=== PATIENT | female | born 1945 | race Asian ===

== ENCOUNTER 2020-10-17 05:01 | Day surgery (SDC) | payer BC, OTHER ==
[2020-10-16 14:56] VITALS: BMI 20.5
[2020-10-17 09:51] LABS: BASO % 1.8 % (0-2.0); EOS % 0.8 % (0-4.5); HEMATOCRIT 34.6 % (32.4-45.2); HEMOGLOBIN 11.7 GM/dL (10.7-15.3); LYMPH % 13.2 % (8-40); MCH 31.3 pg (25.7-33.7); MCHC 33.9 g/dl (32.0-36.0); MEAN CELL VOLUME 92.3 fl (80-96); MEAN PLT VOLUME 9.5 fl (7.5-11.1); MONO % 7.9 % (3.8-10.2); NEUT % 76.3 % (42.8-82.8); PLATELET COUNT 46 K/MM3 (134-434); RBC 3.75 M/mm3 (3.60-5.2); RDW 16.1 % (11.6-15.6); WHITE BLOOD COUNT 15.1 K/mm3 (4.0-10.0)
[2020-10-17 09:57] LABS: INR 1.08 (0.83-1.09); PROTHROMBIN TIME (PATIENT) 13.2 SEC (9.7-13.0)
[2020-10-17 12:14] LABS: ANISOCYTOSIS 1+; MACROCYTOSIS 0; PLATELET ESTIMATE DECREASED; TEAR DROP CELLS 1+
[2020-10-17] MEDS ORDERED: MIDAZOLAM HCL 2 MG/2 ML SINGLE DOSE VIAL IVPUSH ONE (14:30)
[2020-10-17 15:14] VITALS: BP 160/54; PULSE 69; TEMP 98.2
== END 2020-10-17 14:10 | disposition home or self-care (01) ==
LOC: JRADIR 05:01
PROVIDERS: ATTEND Internal Medicine Hematology & Oncology
PROC: 07DR3ZX Extraction of Iliac Bone Marrow, Percutaneous Approach, Diagnostic (ICD-10-PCS; principal; 2020-10-17)
DX: D64.9 Anemia, unspecified (principal)
CPT/HCPCS: 20225; 36415; 85025; 85610; 88300-TC; 88305-TC; 88311-TC; 88313-TC

== ENCOUNTER 2021-02-13 16:53 | Inpatient (IN) | payer OTHER ==
[2021-02-13] MEDS ORDERED: SODIUM CHLORIDE 1,000 ML IV STA (18:09)
[2021-02-13] MEDS ORDERED: amLODIPine BESYLATE 5 MG TABLET (FP) PO ONE (19:29)
[2021-02-13] MEDS ORDERED: amLODIPine BESYLATE 5 MG TABLET (FP) ONE ×2 (20:24→20:25)
[2021-02-13] MEDS ORDERED: NIFEdipine 10 MG CAPSULE (FP) PO ONE (21:10)
[2021-02-13] MEDS ORDERED: NIFEdipine E.R. 30 MG TABLET ONE (21:11)
[2021-02-13] MEDS ORDERED: hydrALAZINE HCL 20 MG/ML VIAL IVPUSH ONE (22:37)
[2021-02-13] MEDS ORDERED: hydrALAZINE HCL 20 MG/ML VIAL ONE (22:51)
[2021-02-14] MEDS ORDERED: ACETAMINOPHEN 325 MG TABLET (FP) ONE (01:24)
[2021-02-14] MEDS: ACETAMINOPHEN 325 MG TABLET (FP) PO PRN ×3 (01:32→23:20)
[2021-02-14 05:27] VITALS: BMI 19.3
[2021-02-14 08:18] LABS: HEMATOCRIT 33.9 % (32.4-45.2); HEMOGLOBIN 11.9 GM/dL (10.7-15.3); MCH 30.9 pg (25.7-33.7); MCHC 35.1 g/dl (32.0-36.0); MEAN CELL VOLUME 88.2 fl (80-96); MEAN PLT VOLUME 8.3 fl (7.5-11.1); RBC 3.84 M/mm3 (3.60-5.2); RDW 16.2 % (11.6-15.6); WHITE BLOOD COUNT 11.8 K/mm3 (4.0-10.0)
[2021-02-14 08:23] LABS: PLATELET COUNT 28 10^3/uL (134-434)
[2021-02-14 08:46] LABS: CALCIUM 7.9 mg/dL (8.5-10.1)
[2021-02-14 08:47] LABS: ALBUMIN 3.2 g/dl (3.4-5.0); BLOOD UREA NITROGEN 9.6 mg/dL (7-18)
[2021-02-14 08:50] LABS: CREATININE 0.6 mg/dL (0.55-1.3)
[2021-02-14 08:51] LABS: BILIRUBIN,TOTAL 0.8 mg/dL (0.2-1)
[2021-02-14 08:52] LABS: TOT PROT 6.5 g/dl (6.4-8.2)
[2021-02-14 09:03] LABS: ANISOCYTOSIS 1+; MACROCYTOSIS 1+; OVALOCYTE 1+; PLATELET ESTIMATE DECREASED
[2021-02-14] MEDS: FERROUS SO4 325 MG TABLET (FP) PO SCH (09:50)
[2021-02-14] MEDS: ASCORBIC ACID 500 MG TABLET (FP) PO SCH (09:50)
[2021-02-14] MEDS: amLODIPine BESYLATE 10 MG TABLET (FP) PO SCH (09:50)
[2021-02-14] MEDS: LOSARTAN POTASSIUM 50 MG TABLET PO SCH (09:50)
[2021-02-14] MEDS: MULTIVITAMINS (DAILY MVI) TABLET (FP) PO SCH (09:50)
[2021-02-14] MEDS ORDERED: POTASSIUM CHLORIDE TABS 20 MEQ TABLET.ER (FP) PO ONE (13:20)
[2021-02-14] MEDS ORDERED: SODIUM CHLORIDE 1 GM TABLET PO ONE (13:22)
[2021-02-14] MEDS: SENNOSIDES 8.6MG TABLET (FP) PO SCH (23:18)
[2021-02-15 07:26] LABS: HEMATOCRIT 34.5 % (32.4-45.2); MCH 30.9 pg (25.7-33.7); MCHC 34.7 g/dl (32.0-36.0); MEAN CELL VOLUME 89.1 fl (80-96); MEAN PLT VOLUME 8.2 fl (7.5-11.1); RBC 3.87 M/mm3 (3.60-5.2); RDW 16.2 % (11.6-15.6); WHITE BLOOD COUNT 12.9 K/mm3 (4.0-10.0)
[2021-02-15 07:30] LABS: PLATELET COUNT 27 10^3/uL (134-434)
[2021-02-15 07:52] LABS: ALBUMIN 3.2 g/dl (3.4-5.0); BLOOD UREA NITROGEN 17.1 mg/dL (7-18); CALCIUM 7.7 mg/dL (8.5-10.1); MAGNESIUM 2.1 mg/dL (1.8-2.4)
[2021-02-15 07:54] LABS: BILIRUBIN,TOTAL 0.7 mg/dL (0.2-1); TOT PROT 6.1 g/dl (6.4-8.2)
[2021-02-15 07:55] LABS: CREATININE 0.5 mg/dL (0.55-1.3)
[2021-02-15] MEDS: LOSARTAN POTASSIUM 50 MG TABLET PO SCH (09:43)
[2021-02-15] MEDS: FERROUS SO4 325 MG TABLET (FP) PO SCH (09:43)
[2021-02-15] MEDS: ASCORBIC ACID 500 MG TABLET (FP) PO SCH (09:43)
[2021-02-15] MEDS: amLODIPine BESYLATE 10 MG TABLET (FP) PO SCH (09:43)
[2021-02-15] MEDS: MULTIVITAMINS (DAILY MVI) TABLET (FP) PO SCH (09:43)
[2021-02-15 12:47] LABS: EPI CELLS 2 /uL (0-25.1); HYALINE CASTS 0 /uL (0-3.1); PH,URINE 6.5 (5.0-8.0); URINE APPEARANCE CLEAR; URINE BACTERIA 27 /uL (0-1359); URINE BILIRUBIN NEGATIVE (NEGATIVE); URINE COLOR YELLOW; URINE GLUCOSE (UA) 2+ (NEGATIVE); URINE KETONE NEGATIVE (NEGATIVE); URINE LEUK ESTERASE NEGATIVE (NEGATIVE); URINE NITRITE NEGATIVE (NEGATIVE); URINE PROTEIN 2+ (NEGATIVE); URINE RBC 10 /uL (0-23.9); URINE UROBILINOGEN 0.2 mg/dL (0.2-1.0); URINE WBC 3 /uL (0-25.8)
[2021-02-15] MEDS ORDERED: SODIUM CHLORIDE 1 GM TABLET PO ONE (13:17)
[2021-02-15] MEDS: ACETAMINOPHEN 325 MG TABLET (FP) PO PRN (16:29)
[2021-02-15] MEDS: SENNOSIDES 8.6MG TABLET (FP) PO SCH (21:17)
[2021-02-16 08:38] LABS: CALCIUM 7.8 mg/dL (8.5-10.1)
[2021-02-16 08:39] LABS: BLOOD UREA NITROGEN 21.7 mg/dL (7-18)
[2021-02-16 08:42] LABS: CREATININE 0.5 mg/dL (0.55-1.3)
[2021-02-16] MEDS: FERROUS SO4 325 MG TABLET (FP) PO SCH (09:34)
[2021-02-16] MEDS: amLODIPine BESYLATE 10 MG TABLET (FP) PO SCH (09:34)
[2021-02-16] MEDS: MULTIVITAMINS (DAILY MVI) TABLET (FP) PO SCH (09:34)
[2021-02-16] MEDS: ASCORBIC ACID 500 MG TABLET (FP) PO SCH (09:34)
[2021-02-16] MEDS: LOSARTAN POTASSIUM 50 MG TABLET PO SCH (09:34)
[2021-02-16] MEDS ORDERED: SODIUM CHLORIDE 1 GM TABLET PO ONE (12:38)
[2021-02-16] MEDS: ACETAMINOPHEN 325 MG TABLET (FP) PO PRN ×2 (14:20→21:34)
[2021-02-16 20:50] LABS: ALBUMIN 3.4 g/dl (3.4-5.0); BLOOD UREA NITROGEN 24.3 mg/dL (7-18)
[2021-02-16 20:53] LABS: CREATININE 0.8 mg/dL (0.55-1.3)
[2021-02-16 20:55] LABS: BILIRUBIN,TOTAL 0.6 mg/dL (0.2-1); TOT PROT 6.7 g/dl (6.4-8.2)
[2021-02-16] MEDS ORDERED: PT OWN MED DRAWER 7, Y5N ONE (20:57)
[2021-02-16] MEDS: SENNOSIDES 8.6MG TABLET (FP) PO SCH (21:34)
[2021-02-17] MEDS: ACETAMINOPHEN 325 MG TABLET (FP) PO PRN (05:48)
[2021-02-17 08:17] LABS: HEMATOCRIT 37.6 % (32.4-45.2); HEMOGLOBIN 12.8 GM/dL (10.7-15.3); MCH 31.1 pg (25.7-33.7); MCHC 34.1 g/dl (32.0-36.0); MEAN CELL VOLUME 91.3 fl (80-96); MEAN PLT VOLUME 8.7 fl (7.5-11.1); RBC 4.12 M/mm3 (3.60-5.2); RDW 16.6 % (11.6-15.6); WHITE BLOOD COUNT 16.7 K/mm3 (4.0-10.0)
[2021-02-17 08:48] LABS: PLATELET COUNT 27 10^3/uL (134-434)
[2021-02-17 10:07] LABS: ANISOCYTOSIS 0; HELMET CELLS 0; HOWELL-JOLLY BODIES 0; MACROCYTOSIS 0; OVALOCYTE 0; PLATELET ESTIMATE DECREASED; ROULEAU 0; SICKELED CELLS 0; TARGET CELLS 0; TEAR DROP CELLS 0; TOXIC GRANULATION 0
[2021-02-17] MEDS: FERROUS SO4 325 MG TABLET (FP) PO SCH (10:07)
[2021-02-17] MEDS: amLODIPine BESYLATE 10 MG TABLET (FP) PO SCH (10:07)
[2021-02-17] MEDS: ASCORBIC ACID 500 MG TABLET (FP) PO SCH (10:07)
[2021-02-17] MEDS: LOSARTAN POTASSIUM 50 MG TABLET PO SCH (10:07)
[2021-02-17] MEDS: MULTIVITAMINS (DAILY MVI) TABLET (FP) PO SCH (10:07)
[2021-02-17] MEDS ORDERED: SODIUM CHLORIDE 1,000 ML IV SCH (12:30)
[2021-02-17] MEDS: SODIUM CHLORIDE 1 GM TABLET PO SCH (13:15)
[2021-02-17] MEDS ORDERED: METOPROLOL TARTRATE 5 MG/5 ML VIAL IVPUSH PRN (16:49)
[2021-02-17] MEDS ORDERED: METOPROLOL TARTRATE 5 MG/5 ML VIAL ONE (16:50)
[2021-02-17] MEDS ORDERED: METOPROLOL TARTRATE 25 MG TABLET (FP) PO ONE (17:11)
[2021-02-17] MEDS: METOPROLOL TARTRATE 25 MG TABLET (FP) PO SCH (21:59)
[2021-02-17] MEDS: SENNOSIDES 8.6MG TABLET (FP) PO SCH (21:59)
[2021-02-18] MEDS: ACETAMINOPHEN 325 MG TABLET (FP) PO PRN ×2 (00:59→20:07)
[2021-02-18] MEDS: METOPROLOL TARTRATE 25 MG TABLET (FP) PO SCH ×3 (05:36→21:18)
[2021-02-18 08:12] LABS: CALCIUM 8.1 mg/dL (8.5-10.1)
[2021-02-18 08:13] LABS: BLOOD UREA NITROGEN 14.6 mg/dL (7-18)
[2021-02-18 08:16] LABS: CREATININE 0.4 mg/dL (0.55-1.3)
[2021-02-18 08:17] LABS: BILIRUBIN,TOTAL 0.7 mg/dL (0.2-1); TOT PROT 5.9 g/dl (6.4-8.2)
[2021-02-18] MEDS: LOSARTAN POTASSIUM 50 MG TABLET PO SCH (14:00)
[2021-02-18] MEDS: MULTIVITAMINS (DAILY MVI) TABLET (FP) PO SCH (14:00)
[2021-02-18] MEDS: amLODIPine BESYLATE 10 MG TABLET (FP) PO SCH (14:01)
[2021-02-18] MEDS: SODIUM CHLORIDE 1 GM TABLET PO SCH (14:01)
[2021-02-18] MEDS: ASCORBIC ACID 500 MG TABLET (FP) PO SCH (14:01)
[2021-02-18] MEDS: SENNOSIDES 8.6MG TABLET (FP) PO SCH (21:18)
[2021-02-19] MEDS: METOPROLOL TARTRATE 25 MG TABLET (FP) PO SCH (05:08)
[2021-02-19] MEDS: SODIUM CHLORIDE 1 GM TABLET PO SCH (10:56)
[2021-02-19] MEDS: LOSARTAN POTASSIUM 50 MG TABLET PO SCH (10:56)
[2021-02-19] MEDS: MULTIVITAMINS (DAILY MVI) TABLET (FP) PO SCH (10:56)
[2021-02-19] MEDS: amLODIPine BESYLATE 10 MG TABLET (FP) PO SCH (10:56)
[2021-02-19] MEDS: metoPROLOL SUCCINATE 25 MG TAB.SR.24H (FP) PO SCH (10:56)
[2021-02-19] MEDS: ASCORBIC ACID 500 MG TABLET (FP) PO SCH (10:56)
[2021-02-19 11:20] LABS: HEMATOCRIT 38.2 % (32.4-45.2); HEMOGLOBIN 13.1 GM/dL (10.7-15.3); MCH 31.5 pg (25.7-33.7); MCHC 34.2 g/dl (32.0-36.0); MEAN CELL VOLUME 92.1 fl (80-96); MEAN PLT VOLUME 8.7 fl (7.5-11.1); RBC 4.15 M/mm3 (3.60-5.2)
[2021-02-19 11:32] LABS: PLATELET COUNT 23 10^3/uL (134-434)
[2021-02-19 11:33] LABS: BLOOD UREA NITROGEN 14.7 mg/dL (7-18); CALCIUM 8.5 mg/dL (8.5-10.1)
[2021-02-19 11:34] LABS: ALBUMIN 3.3 g/dl (3.4-5.0)
[2021-02-19 11:36] LABS: CREATININE 0.6 mg/dL (0.55-1.3)
[2021-02-19 11:38] LABS: BILIRUBIN,TOTAL 0.9 mg/dL (0.2-1); TOT PROT 6.6 g/dl (6.4-8.2)
[2021-02-19] MEDS: SENNOSIDES 8.6MG TABLET (FP) PO SCH (21:41)
[2021-02-19] MEDS: ACETAMINOPHEN 325 MG TABLET (FP) PO PRN (21:42)
[2021-02-20 07:22] LABS: HEMATOCRIT 35.1 % (32.4-45.2); HEMOGLOBIN 12.2 GM/dL (10.7-15.3); MCH 31.6 pg (25.7-33.7); MCHC 34.7 g/dl (32.0-36.0); MEAN PLT VOLUME 8.3 fl (7.5-11.1); RBC 3.86 M/mm3 (3.60-5.2); RDW 16.3 % (11.6-15.6)
[2021-02-20 07:37] LABS: PLATELET COUNT 20 10^3/uL (134-434)
[2021-02-20] MEDS: amLODIPine BESYLATE 10 MG TABLET (FP) PO SCH (10:03)
[2021-02-20] MEDS: LOSARTAN POTASSIUM 50 MG TABLET PO SCH (10:03)
[2021-02-20] MEDS: MULTIVITAMINS (DAILY MVI) TABLET (FP) PO SCH (10:03)
[2021-02-20] MEDS: metoPROLOL SUCCINATE 25 MG TAB.SR.24H (FP) PO SCH (10:03)
[2021-02-20] MEDS: SODIUM CHLORIDE 1 GM TABLET PO SCH (10:03)
[2021-02-20] MEDS: ASCORBIC ACID 500 MG TABLET (FP) PO SCH (10:03)
[2021-02-20] MEDS: ACETAMINOPHEN 325 MG TABLET (FP) PO PRN ×2 (10:04→21:49)
[2021-02-20] MEDS: SENNOSIDES 8.6MG TABLET (FP) PO SCH (21:45)
[2021-02-21 06:40] VITALS: TEMP 98.2
[2021-02-21 07:58] LABS: HEMATOCRIT 35.4 % (32.4-45.2); HEMOGLOBIN 12.2 GM/dL (10.7-15.3); MCH 30.9 pg (25.7-33.7); MCHC 34.3 g/dl (32.0-36.0); MEAN CELL VOLUME 90.1 fl (80-96); MEAN PLT VOLUME 8.5 fl (7.5-11.1); RBC 3.93 M/mm3 (3.60-5.2); RDW 15.8 % (11.6-15.6); WHITE BLOOD COUNT 14.2 K/mm3 (4.0-10.0)
[2021-02-21 08:16] LABS: ALBUMIN 3.4 g/dl (3.4-5.0); BLOOD UREA NITROGEN 19.8 mg/dL (7-18); CALCIUM 8.7 mg/dL (8.5-10.1)
[2021-02-21 08:18] LABS: CREATININE 0.6 mg/dL (0.55-1.3)
[2021-02-21 08:29] LABS: PLATELET COUNT 20 10^3/uL (134-434)
[2021-02-21 09:33] VITALS: BP 140/67; PULSE 105
[2021-02-21 09:34] LABS: BILIRUBIN,TOTAL 0.7 mg/dL (0.2-1)
[2021-02-21] MEDS: LOSARTAN POTASSIUM 50 MG TABLET PO SCH (10:25)
[2021-02-21] MEDS: amLODIPine BESYLATE 10 MG TABLET (FP) PO SCH (10:25)
[2021-02-21] MEDS: ASCORBIC ACID 500 MG TABLET (FP) PO SCH (10:25)
[2021-02-21] MEDS: metoPROLOL SUCCINATE 25 MG TAB.SR.24H (FP) PO SCH (10:25)
[2021-02-21] MEDS: MULTIVITAMINS (DAILY MVI) TABLET (FP) PO SCH (10:25)
[2021-02-21] MEDS: ACETAMINOPHEN 325 MG TABLET (FP) PO PRN (10:27)
== END 2021-02-21 14:00 | disposition home health service (06) | DRG 641 ==
LOC: JER 16:53 → JERBED 22:55 → J4W 02-14 04:04
PROVIDERS: ADMIT Internal Medicine; ATTEND Internal Medicine
DX: E87.1 Hypo-osmolality and hyponatremia (principal); D75.81 Myelofibrosis; I16.0 Hypertensive urgency; R42 Dizziness and giddiness; E11.9 Type 2 diabetes mellitus without complications; E03.9 Hypothyroidism, unspecified; I27.20 Pulmonary hypertension, unspecified; F17.200 Nicotine dependence, unspecified, uncomplicated; I48.91 Unspecified atrial fibrillation; D69.6 Thrombocytopenia, unspecified; E87.6 Hypokalemia; D64.9 Anemia, unspecified
CPT/HCPCS: 36415; 70450-TC; 71045-TC-FY; 71046-TC-FY; 80048; 80053; 81003; 82436; 82533; 82728; 83036; 83540; 83550; 83615; 83735; 83930; 83935; 84133; 84300; 84439; 84443; 85025; 85027; 86850; 86900; 86901; 87040; 87086; 88300-TC; 93005; 93010; 93306-TC; 99285-25; C9803; U0003; U0005

== ENCOUNTER 2021-03-18 15:55 | Inpatient (IN) | payer OTHER ==
[2021-03-18 23:37] LABS: HEMATOCRIT 31.3 % (32.4-45.2); HEMOGLOBIN 10.1 GM/dL (10.7-15.3); MCH 30.5 pg (25.7-33.7); MCHC 32.2 g/dl (32.0-36.0); MEAN CELL VOLUME 94.7 fl (80-96); MEAN PLT VOLUME 8.6 fl (7.5-11.1); PLATELET COUNT 73 10^3/uL (134-434); RDW 17.2 % (11.6-15.6); WHITE BLOOD COUNT 19.2 K/mm3 (4.0-10.0)
[2021-03-18 23:47] LABS: CHLORIDE 107 mmol/L (98-107); SODIUM 140 mmol/L (136-145)
[2021-03-18 23:50] LABS: ANION GAP 7 MMOL/L (8-16); BLOOD UREA NITROGEN 9.5 mg/dL (7-18); CALCIUM 8.7 mg/dL (8.5-10.1); CO2 26 mmol/L (21-32)
[2021-03-18 23:51] LABS: ALBUMIN 3.4 g/dl (3.4-5.0); GLUCOSE,RANDOM 102 mg/dL (74-106)
[2021-03-18 23:54] LABS: CREATININE 0.5 mg/dL (0.55-1.3); SGOT/AST 54 U/L (15-37); SGPT/ALT 54 U/L (13-61)
[2021-03-18 23:55] LABS: BILIRUBIN,TOTAL 1.1 mg/dL (0.2-1); TOT PROT 6.8 g/dl (6.4-8.2)
[2021-03-18 23:59] LABS: N-TERMINAL BNP 2430.2 pg/ml (5-450)
[2021-03-19 00:28] LABS: ALK PHOS 136 U/L (45-117)
[2021-03-19 01:08] LABS: ANISOCYTOSIS 1+; MACROCYTOSIS 0; PLATELET ESTIMATE DECREASED
[2021-03-19] MEDS ORDERED: SODIUM CHLORIDE 0.9% 500 ML INFUS.BAG IV ONE (01:44)
[2021-03-19 05:59] LABS: CHLORIDE 108 mmol/L (98-107); SODIUM 141 mmol/L (136-145)
[2021-03-19 06:01] LABS: ALBUMIN 3.1 g/dl (3.4-5.0); ANION GAP 5 MMOL/L (8-16); BLOOD UREA NITROGEN 11.2 mg/dL (7-18); CALCIUM 8.3 mg/dL (8.5-10.1); CO2 28 mmol/L (21-32); GLUCOSE,RANDOM 157 mg/dL (74-106)
[2021-03-19 06:04] LABS: CREATININE 0.7 mg/dL (0.55-1.3); SGOT/AST 42 U/L (15-37); SGPT/ALT 54 U/L (13-61)
[2021-03-19 06:05] LABS: INR 1.17 (0.83-1.09); PROTHROMBIN TIME (PATIENT) 14.4 SEC (9.7-13.0)
[2021-03-19 06:06] LABS: BILIRUBIN,TOTAL 0.9 mg/dL (0.2-1); TOT PROT 6.2 g/dl (6.4-8.2)
[2021-03-19 06:07] LABS: ACTIVATED PTT 29.7 SECONDS (25.2-36.5); ALK PHOS 142 U/L (45-117)
[2021-03-19] MEDS: INSULIN SLIDING SCALE (NOVOLOG) 1 VIAL SQ SCH ×4 (08:29→21:53)
[2021-03-19] MEDS ORDERED: METOPROLOL TARTRATE 50 MG TABLET (FP) ONE (09:31)
[2021-03-19] MEDS ORDERED: LOSARTAN POTASSIUM 50 MG TABLET ONE (09:31)
[2021-03-19] MEDS ORDERED: ASCORBIC ACID 500 MG TABLET (FP) ONE (09:31)
[2021-03-19] MEDS ORDERED: FERROUS SO4 325 MG TABLET (FP) ONE ×2 (09:32→18:17)
[2021-03-19] MEDS ORDERED: FUROSEMIDE 40 MG/4 ML INJECTABLE VIAL ONE (09:33)
[2021-03-19] MEDS: FERROUS SO4 325 MG TABLET (FP) PO SCH ×2 (09:56→18:17)
[2021-03-19] MEDS: FUROSEMIDE 40 MG/4 ML INJECTABLE VIAL IVPUSH SCH (11:56)
[2021-03-19] MEDS: LOSARTAN POTASSIUM 50 MG TABLET PO SCH (11:56)
[2021-03-19] MEDS: METOPROLOL TARTRATE 50 MG TABLET (FP) PO SCH ×2 (11:56→21:56)
[2021-03-19] MEDS: CALCIUM 500MG/VIT-D 200 UNITS COMBO TABLET (FP) PO SCH (11:57)
[2021-03-19] MEDS: ASCORBIC ACID 500 MG TABLET (FP) PO SCH (11:57)
[2021-03-19 12:13] LABS: EPI CELLS 1 /uL (0-25.1); HYALINE CASTS 0 /uL (0-3.1); PH,URINE 5.5 (5.0-8.0); URINE APPEARANCE CLEAR; URINE BACTERIA 7 /uL (0-1359); URINE BILIRUBIN NEGATIVE (NEGATIVE); URINE COLOR YELLOW; URINE GLUCOSE (UA) NEGATIVE (NEGATIVE); URINE KETONE NEGATIVE (NEGATIVE); URINE LEUK ESTERASE NEGATIVE (NEGATIVE); URINE NITRITE NEGATIVE (NEGATIVE); URINE PROTEIN 1+ (NEGATIVE); URINE RBC 5 /uL (0-23.9); URINE WBC 3 /uL (0-25.8)
[2021-03-19] MEDS ORDERED: ACETAMINOPHEN 325 MG TABLET (FP) ONE (15:20)
[2021-03-19] MEDS: ACETAMINOPHEN 325 MG TABLET (FP) PO PRN (15:27)
[2021-03-20] MEDS: INSULIN SLIDING SCALE (NOVOLOG) 1 VIAL SQ SCH ×4 (06:44→22:33)
[2021-03-20 07:32] LABS: HEMATOCRIT 29.9 % (32.4-45.2); HEMOGLOBIN 9.9 GM/dL (10.7-15.3); MCH 30.8 pg (25.7-33.7); MEAN CELL VOLUME 93.4 fl (80-96); MEAN PLT VOLUME 8.2 fl (7.5-11.1); PLATELET COUNT 59 10^3/uL (134-434)
[2021-03-20 07:53] LABS: ALBUMIN 3.2 g/dl (3.4-5.0)
[2021-03-20 07:54] LABS: CALCIUM 8.4 mg/dL (8.5-10.1)
[2021-03-20 07:56] LABS: CREATININE 0.6 mg/dL (0.55-1.3)
[2021-03-20 07:58] LABS: BILIRUBIN,TOTAL 1.3 mg/dL (0.2-1); TOT PROT 6.4 g/dl (6.4-8.2)
[2021-03-20 08:55] LABS: ANISOCYTOSIS 1+; MACROCYTOSIS 1+; OVALOCYTE 1+; PLATELET ESTIMATE DECREASED
[2021-03-20 08:57] LABS: CORRECTED WBC 19.56 K/mm3; WHITE BLOOD COUNT 22.1 K/mm3 (4.0-10.0)
[2021-03-20] MEDS: FERROUS SO4 325 MG TABLET (FP) PO SCH ×2 (09:15→16:51)
[2021-03-20] MEDS: FUROSEMIDE 40 MG/4 ML INJECTABLE VIAL IVPUSH SCH (09:15)
[2021-03-20] MEDS: CALCIUM 500MG/VIT-D 200 UNITS COMBO TABLET (FP) PO SCH (09:16)
[2021-03-20] MEDS: LOSARTAN POTASSIUM 50 MG TABLET PO SCH (09:16)
[2021-03-20] MEDS: ASCORBIC ACID 500 MG TABLET (FP) PO SCH (09:16)
[2021-03-20] MEDS: METOPROLOL TARTRATE 50 MG TABLET (FP) PO SCH ×2 (09:16→22:33)
[2021-03-20] MEDS: ACETAMINOPHEN 325 MG TABLET (FP) PO PRN ×2 (16:09→22:33)
[2021-03-21] MEDS: INSULIN SLIDING SCALE (NOVOLOG) 1 VIAL SQ SCH ×4 (06:16→21:47)
[2021-03-21 07:57] LABS: HEMATOCRIT 29.6 % (32.4-45.2); HEMOGLOBIN 9.9 GM/dL (10.7-15.3); MCH 31.2 pg (25.7-33.7); MCHC 33.4 g/dl (32.0-36.0); MEAN CELL VOLUME 93.4 fl (80-96); MEAN PLT VOLUME 8.4 fl (7.5-11.1); PLATELET COUNT 53 10^3/uL (134-434); RBC 3.18 M/mm3 (3.60-5.2); RDW 16.8 % (11.6-15.6); WHITE BLOOD COUNT 16.8 K/mm3 (4.0-10.0)
[2021-03-21 08:13] LABS: BLOOD UREA NITROGEN 16.7 mg/dL (7-18); CALCIUM 8.6 mg/dL (8.5-10.1)
[2021-03-21 08:17] LABS: CREATININE 0.6 mg/dL (0.55-1.3)
[2021-03-21 08:19] LABS: TOT PROT 6.1 g/dl (6.4-8.2)
[2021-03-21] MEDS: FERROUS SO4 325 MG TABLET (FP) PO SCH ×2 (08:23→17:16)
[2021-03-21] MEDS ORDERED: POTASSIUM CHLORIDE ORAL LIQUID 20 MEQ/15 ML PO ONE (08:45)
[2021-03-21] MEDS: LOSARTAN POTASSIUM 50 MG TABLET PO SCH (10:42)
[2021-03-21] MEDS: FUROSEMIDE 40 MG/4 ML INJECTABLE VIAL IVPUSH SCH (10:43)
[2021-03-21] MEDS: ASCORBIC ACID 500 MG TABLET (FP) PO SCH (10:43)
[2021-03-21] MEDS: CALCIUM 500MG/VIT-D 200 UNITS COMBO TABLET (FP) PO SCH (10:43)
[2021-03-21] MEDS: METOPROLOL TARTRATE 50 MG TABLET (FP) PO SCH ×2 (10:43→21:46)
[2021-03-22] MEDS: INSULIN SLIDING SCALE (NOVOLOG) 1 VIAL SQ SCH ×4 (06:30→22:36)
[2021-03-22] MEDS: ASCORBIC ACID 500 MG TABLET (FP) PO SCH (11:00)
[2021-03-22] MEDS: METOPROLOL TARTRATE 50 MG TABLET (FP) PO SCH ×2 (11:00→22:36)
[2021-03-22] MEDS: CALCIUM 500MG/VIT-D 200 UNITS COMBO TABLET (FP) PO SCH (11:00)
[2021-03-22] MEDS: FERROUS SO4 325 MG TABLET (FP) PO SCH ×2 (11:00→17:56)
[2021-03-22] MEDS: LOSARTAN POTASSIUM 50 MG TABLET PO SCH (11:00)
[2021-03-22] MEDS: FUROSEMIDE 40 MG/4 ML INJECTABLE VIAL IVPUSH SCH (11:00)
[2021-03-23] MEDS: INSULIN SLIDING SCALE (NOVOLOG) 1 VIAL SQ SCH ×4 (06:27→21:54)
[2021-03-23 08:15] LABS: HEMOGLOBIN 11.1 GM/dL (10.7-15.3); MCH 30.8 pg (25.7-33.7); MCHC 32.7 g/dl (32.0-36.0); MEAN PLT VOLUME 8.7 fl (7.5-11.1); PLATELET COUNT 70 10^3/uL (134-434); RBC 3.62 M/mm3 (3.60-5.2); RDW 16.7 % (11.6-15.6); WHITE BLOOD COUNT 27.4 K/mm3 (4.0-10.0)
[2021-03-23 08:28] LABS: ALBUMIN 3.5 g/dl (3.4-5.0)
[2021-03-23 08:29] LABS: BLOOD UREA NITROGEN 15.6 mg/dL (7-18); CALCIUM 8.8 mg/dL (8.5-10.1)
[2021-03-23 08:32] LABS: BILIRUBIN,TOTAL 1.1 mg/dL (0.2-1); CREATININE 0.7 mg/dL (0.55-1.3)
[2021-03-23] MEDS: METOPROLOL TARTRATE 50 MG TABLET (FP) PO SCH ×2 (09:50→21:53)
[2021-03-23] MEDS: FERROUS SO4 325 MG TABLET (FP) PO SCH ×2 (09:50→17:26)
[2021-03-23] MEDS: ASCORBIC ACID 500 MG TABLET (FP) PO SCH (09:50)
[2021-03-23] MEDS: CALCIUM 500MG/VIT-D 200 UNITS COMBO TABLET (FP) PO SCH (09:50)
[2021-03-23] MEDS: LOSARTAN POTASSIUM 50 MG TABLET PO SCH (09:50)
[2021-03-23] MEDS: FUROSEMIDE 40 MG/4 ML INJECTABLE VIAL IVPUSH SCH (09:50)
[2021-03-23] MEDS: ACETAMINOPHEN 325 MG TABLET (FP) PO PRN (21:53)
[2021-03-24] MEDS: INSULIN SLIDING SCALE (NOVOLOG) 1 VIAL SQ SCH ×4 (06:35→21:43)
[2021-03-24] MEDS: FERROUS SO4 325 MG TABLET (FP) PO SCH ×2 (08:14→17:06)
[2021-03-24] MEDS: CALCIUM 500MG/VIT-D 200 UNITS COMBO TABLET (FP) PO SCH (10:22)
[2021-03-24] MEDS: METOPROLOL TARTRATE 50 MG TABLET (FP) PO SCH ×3 (10:22→21:43)
[2021-03-24] MEDS: FUROSEMIDE 20 MG TABLET (FP) PO SCH (10:22)
[2021-03-24] MEDS: LOSARTAN POTASSIUM 50 MG TABLET PO SCH (10:22)
[2021-03-24] MEDS: ASCORBIC ACID 500 MG TABLET (FP) PO SCH (10:22)
[2021-03-24 11:15] LABS: HEMATOCRIT 30.9 % (32.4-45.2); MCH 30.5 pg (25.7-33.7); MCHC 32.5 g/dl (32.0-36.0); MEAN CELL VOLUME 93.9 fl (80-96); MEAN PLT VOLUME 8.7 fl (7.5-11.1); PLATELET COUNT 52 10^3/uL (134-434); RBC 3.29 M/mm3 (3.60-5.2)
[2021-03-24 11:20] LABS: WHITE BLOOD COUNT 19.7 K/mm3 (4.0-10.0)
[2021-03-24 11:35] LABS: ALBUMIN 3.1 g/dl (3.4-5.0); BLOOD UREA NITROGEN 19.1 mg/dL (7-18); CALCIUM 8.6 mg/dL (8.5-10.1)
[2021-03-24 11:38] LABS: CREATININE 0.7 mg/dL (0.55-1.3)
[2021-03-24 11:40] LABS: BILIRUBIN,TOTAL 0.8 mg/dL (0.2-1); TOT PROT 6.4 g/dl (6.4-8.2)
[2021-03-24 12:33] LABS: ANISOCYTOSIS 0; MACROCYTOSIS 0; PLATELET ESTIMATE DECREASED
[2021-03-24] MEDS: ACETAMINOPHEN 325 MG TABLET (FP) PO PRN (15:41)
[2021-03-25 05:55] LABS: PH,URINE 6.5 (5.0-8.0); URINE APPEARANCE Error; URINE BILIRUBIN NEGATIVE (NEGATIVE); URINE COLOR YELLOW; URINE GLUCOSE (UA) NEGATIVE (NEGATIVE); URINE KETONE NEGATIVE (NEGATIVE); URINE LEUK ESTERASE NEGATIVE (NEGATIVE); URINE NITRITE NEGATIVE (NEGATIVE); URINE PROTEIN NEGATIVE (NEGATIVE); URINE UROBILINOGEN 0.2 mg/dL (0.2-1.0)
[2021-03-25] MEDS: METOPROLOL TARTRATE 50 MG TABLET (FP) PO SCH ×3 (06:16→21:44)
[2021-03-25] MEDS: INSULIN SLIDING SCALE (NOVOLOG) 1 VIAL SQ SCH ×4 (06:16→21:44)
[2021-03-25] MEDS: FERROUS SO4 325 MG TABLET (FP) PO SCH ×2 (10:33→18:00)
[2021-03-25] MEDS: CALCIUM 500MG/VIT-D 200 UNITS COMBO TABLET (FP) PO SCH (10:33)
[2021-03-25] MEDS: FUROSEMIDE 20 MG TABLET (FP) PO SCH (10:33)
[2021-03-25] MEDS: LOSARTAN POTASSIUM 50 MG TABLET PO SCH (10:33)
[2021-03-25] MEDS: ASCORBIC ACID 500 MG TABLET (FP) PO SCH (10:33)
[2021-03-25] MEDS ORDERED: INSULIN (NOVOLOG) ASPART 100 UNITS/ML 10ML VIAL ONE (11:27)
[2021-03-25] MEDS: ACETAMINOPHEN 325 MG TABLET (FP) PO PRN (20:18)
[2021-03-26] MEDS: METOPROLOL TARTRATE 50 MG TABLET (FP) PO SCH ×3 (06:42→21:47)
[2021-03-26] MEDS: INSULIN SLIDING SCALE (NOVOLOG) 1 VIAL SQ SCH ×4 (06:42→21:47)
[2021-03-26] MEDS: GLIMEPIRIDE 1 MG TABLET PO SCH (06:42)
[2021-03-26 08:15] LABS: HEMATOCRIT 28.4 % (32.4-45.2); HEMOGLOBIN 9.4 GM/dL (10.7-15.3); MCH 30.8 pg (25.7-33.7); MCHC 33.2 g/dl (32.0-36.0); MEAN CELL VOLUME 92.6 fl (80-96); MEAN PLT VOLUME 8.6 fl (7.5-11.1); PLATELET COUNT 40 10^3/uL (134-434); RBC 3.07 M/mm3 (3.60-5.2); RDW 16.8 % (11.6-15.6); WHITE BLOOD COUNT 16.3 K/mm3 (4.0-10.0)
[2021-03-26 08:48] LABS: CALCIUM 8.3 mg/dL (8.5-10.1)
[2021-03-26 08:49] LABS: ALBUMIN 2.9 g/dl (3.4-5.0); BLOOD UREA NITROGEN 19.7 mg/dL (7-18)
[2021-03-26 08:52] LABS: CREATININE 0.6 mg/dL (0.55-1.3)
[2021-03-26 08:53] LABS: BILIRUBIN,TOTAL 0.7 mg/dL (0.2-1); TOT PROT 5.9 g/dl (6.4-8.2)
[2021-03-26] MEDS: FUROSEMIDE 20 MG TABLET (FP) PO SCH (10:32)
[2021-03-26] MEDS: CALCIUM 500MG/VIT-D 200 UNITS COMBO TABLET (FP) PO SCH (10:32)
[2021-03-26] MEDS: ASCORBIC ACID 500 MG TABLET (FP) PO SCH (10:32)
[2021-03-26] MEDS: LOSARTAN POTASSIUM 50 MG TABLET PO SCH (10:32)
[2021-03-26] MEDS: FERROUS SO4 325 MG TABLET (FP) PO SCH ×2 (10:32→17:17)
[2021-03-26 16:33] VITALS: BMI 19.2
[2021-03-26] MEDS ORDERED: INSULIN (NOVOLOG) ASPART 100 UNITS/ML 10ML VIAL ONE (21:18)
[2021-03-26] MEDS: ACETAMINOPHEN 325 MG TABLET (FP) PO PRN (21:47)
[2021-03-26] MEDS ORDERED: MAG HYDROX/AL HYDROX/SIMETH 30 ML UNIT-DOSE CUP PO ONE (22:17)
[2021-03-27] MEDS ORDERED: PT OWN MED DRAWER 7, Y5N ONE (05:46)
[2021-03-27] MEDS: METOPROLOL TARTRATE 50 MG TABLET (FP) PO SCH ×3 (06:08→21:33)
[2021-03-27] MEDS: GLIMEPIRIDE 1 MG TABLET PO SCH (06:08)
[2021-03-27] MEDS: INSULIN SLIDING SCALE (NOVOLOG) 1 VIAL SQ SCH ×4 (06:09→21:34)
[2021-03-27] MEDS ORDERED: INSULIN (NOVOLOG) ASPART 100 UNITS/ML 10ML VIAL ONE (06:17)
[2021-03-27 08:24] LABS: HEMATOCRIT 30.9 % (32.4-45.2); HEMOGLOBIN 10.1 GM/dL (10.7-15.3); MCH 30.9 pg (25.7-33.7); MCHC 32.6 g/dl (32.0-36.0); MEAN CELL VOLUME 94.7 fl (80-96); MEAN PLT VOLUME 9.4 fl (7.5-11.1); PLATELET COUNT 44 10^3/uL (134-434); RBC 3.26 M/mm3 (3.60-5.2); RDW 16.6 % (11.6-15.6); WHITE BLOOD COUNT 16.4 K/mm3 (4.0-10.0)
[2021-03-27 08:55] LABS: CALCIUM 8.7 mg/dL (8.5-10.1)
[2021-03-27 08:57] LABS: BILIRUBIN,TOTAL 0.8 mg/dL (0.2-1); BLOOD UREA NITROGEN 20.8 mg/dL (7-18); TOT PROT 6.2 g/dl (6.4-8.2)
[2021-03-27 08:59] LABS: CREATININE 0.6 mg/dL (0.55-1.3)
[2021-03-27] MEDS: CALCIUM 500MG/VIT-D 200 UNITS COMBO TABLET (FP) PO SCH (10:30)
[2021-03-27] MEDS: ASCORBIC ACID 500 MG TABLET (FP) PO SCH (10:31)
[2021-03-27] MEDS: LOSARTAN POTASSIUM 50 MG TABLET PO SCH (10:31)
[2021-03-27] MEDS: FERROUS SO4 325 MG TABLET (FP) PO SCH ×2 (10:31→17:12)
[2021-03-27] MEDS: FUROSEMIDE 20 MG TABLET (FP) PO SCH (10:31)
[2021-03-27] MEDS: ACETAMINOPHEN 325 MG TABLET (FP) PO PRN (21:33)
[2021-03-28] MEDS ORDERED: PT OWN MED DRAWER 7, Y5N ONE (04:54)
[2021-03-28] MEDS: GLIMEPIRIDE 1 MG TABLET PO SCH (06:04)
[2021-03-28] MEDS: INSULIN SLIDING SCALE (NOVOLOG) 1 VIAL SQ SCH ×4 (06:05→22:38)
[2021-03-28] MEDS ORDERED: INSULIN (NOVOLOG) ASPART 100 UNITS/ML 10ML VIAL ONE (06:19)
[2021-03-28] MEDS: LOSARTAN POTASSIUM 50 MG TABLET PO SCH (10:53)
[2021-03-28] MEDS: FERROUS SO4 325 MG TABLET (FP) PO SCH ×2 (10:54→17:37)
[2021-03-28] MEDS: metoPROLOL SUCCINATE 25 MG TAB.SR.24H (FP) PO SCH ×2 (10:54→22:39)
[2021-03-28] MEDS: FUROSEMIDE 20 MG TABLET (FP) PO SCH (10:55)
[2021-03-28] MEDS: ASCORBIC ACID 500 MG TABLET (FP) PO SCH (10:55)
[2021-03-28] MEDS: CALCIUM 500MG/VIT-D 200 UNITS COMBO TABLET (FP) PO SCH (10:56)
[2021-03-28] MEDS: ACETAMINOPHEN 325 MG TABLET (FP) PO PRN (22:43)
[2021-03-29] MEDS ORDERED: PT OWN MED DRAWER 7, Y5N ONE (06:21)
[2021-03-29] MEDS: GLIMEPIRIDE 1 MG TABLET PO SCH (06:57)
[2021-03-29] MEDS: INSULIN SLIDING SCALE (NOVOLOG) 1 VIAL SQ SCH ×2 (06:57→12:17)
[2021-03-29] MEDS: metoPROLOL SUCCINATE 25 MG TAB.SR.24H (FP) PO SCH (10:23)
[2021-03-29] MEDS: FUROSEMIDE 20 MG TABLET (FP) PO SCH (10:24)
[2021-03-29] MEDS: LOSARTAN POTASSIUM 50 MG TABLET PO SCH (10:24)
[2021-03-29] MEDS: CALCIUM 500MG/VIT-D 200 UNITS COMBO TABLET (FP) PO SCH (10:24)
[2021-03-29] MEDS: ASCORBIC ACID 500 MG TABLET (FP) PO SCH (10:24)
[2021-03-29] MEDS: FERROUS SO4 325 MG TABLET (FP) PO SCH (10:24)
[2021-03-29 10:38] VITALS: BP 117/68; PULSE 98; TEMP 97.7
== END 2021-03-29 15:15 | disposition home health service (06) | DRG 291 ==
LOC: JER 15:55 → JERBED 03-19 03:47 → J4W 03-19 21:49
PROVIDERS: ADMIT Internal Medicine; ATTEND Internal Medicine
DX: I11.0 Hypertensive heart disease with heart failure (principal); I50.33 Acute on chronic diastolic (congestive) heart failure; I48.19 Other persistent atrial fibrillation; R64 Cachexia; Z68.1 Body mass index [BMI] 19.9 or less, adult; I27.20 Pulmonary hypertension, unspecified; I48.91 Unspecified atrial fibrillation; E11.9 Type 2 diabetes mellitus without complications; R91.8 Other nonspecific abnormal finding of lung field; R60.0 Localized edema; M79.606 Pain in leg, unspecified; R06.02 Shortness of breath; D75.9 Disease of blood and blood-forming organs, unspecified; D69.6 Thrombocytopenia, unspecified; I16.0 Hypertensive urgency; D64.9 Anemia, unspecified; I25.10 Atherosclerotic heart disease of native coronary artery without angina pectoris; D72.829 Elevated white blood cell count, unspecified
CPT/HCPCS: 36415; 71045-TC-FY; 71046-TC-FY; 71250-TC; 71275-TC; 80048; 80053; 81003; 82550; 82962; 83735; 83880; 84484; 85025; 85027; 85610; 85730; 86480; 86704; 86706; 87040; 87086; 87340; 87350; 87517; 93005; 93010; 94010; 94761; 97116-GP; 97162-GP; 99285-25; C9803; U0003; U0005

== ENCOUNTER 2021-06-15 15:56 | Inpatient (IN) | payer OTHER ==
[2021-06-15 17:41] LABS: HEMATOCRIT 42.2 % (32.4-45.2); MCH 29.4 pg (25.7-33.7); MCHC 33.2 g/dl (32.0-36.0); MEAN CELL VOLUME 88.6 fl (80-96); MEAN PLT VOLUME 8.7 fl (7.5-11.1); PLATELET COUNT 84 10^3/uL (134-434); RBC 4.76 M/mm3 (3.60-5.2); RDW 16.6 % (11.6-15.6); WHITE BLOOD COUNT 26.6 K/mm3 (4.0-10.0)
[2021-06-15 17:50] LABS: INR 1.41 (0.83-1.09); PROTHROMBIN TIME (PATIENT) 15.8 SEC (9.7-13.0)
[2021-06-15 17:59] LABS: CHLORIDE 101 mmol/L (98-107); SODIUM 134 mmol/L (136-145)
[2021-06-15 18:01] LABS: ALBUMIN 2.9 g/dl (3.4-5.0); ANION GAP 7 MMOL/L (8-16); CALCIUM 8.4 mg/dL (8.5-10.1); CO2 26 mmol/L (21-32); GLUCOSE,RANDOM 161 mg/dL (74-106)
[2021-06-15 18:02] LABS: BLOOD UREA NITROGEN 13.6 mg/dL (7-18); MAGNESIUM 1.7 mg/dL (1.8-2.4)
[2021-06-15 18:04] LABS: PHOSPHOROUS 3.5 mg/dL (2.5-4.9); SGOT/AST 47 U/L (15-37); SGPT/ALT 45 U/L (13-61)
[2021-06-15 18:05] LABS: CREATININE 0.6 mg/dL (0.55-1.3)
[2021-06-15 18:06] LABS: TOT PROT 6.4 g/dl (6.4-8.2)
[2021-06-15 18:07] LABS: ALK PHOS 262 U/L (45-117)
[2021-06-15 18:09] LABS: N-TERMINAL BNP 3033.2 pg/ml (5-450)
[2021-06-15] MEDS ORDERED: ACYCLOVIR INJECTION 500 MG in DEXTROSE 5%-WATER - 100 ML IVPB ONE ×2 (18:09→19:25)
[2021-06-15] MEDS ORDERED: ALBUTEROL SO4 2.5/IPRATROPIUM 0.5 INH SOL 3 ML VIAL.NEB. NEB ONE (18:22)
[2021-06-15] MEDS: ALBUTEROL SO4 2.5/IPRATROPIUM 0.5 INH SOL 3 ML VIAL.NEB. NEB SCH ×3 (19:06→19:08)
[2021-06-15 19:41] LABS: ANISOCYTOSIS 1+; MACROCYTOSIS 0; PLATELET ESTIMATE DECREASED
[2021-06-15] MEDS ORDERED: metoPROLOL SUCCINATE 25 MG TAB.SR.24H (FP) PO ONE (20:02)
[2021-06-15] MEDS ORDERED: FUROSEMIDE 40 MG/4 ML INJECTABLE VIAL IVPUSH ONE (20:12)
[2021-06-15] MEDS ORDERED: MAGNESIUM 1GM/D5W - 1 GM/100 ML IVPB IVPB ONE ×2 (20:27→23:18)
[2021-06-15] MEDS ORDERED: ACETAMINOPHEN 325 MG TABLET (FP) PO ONE (20:53)
[2021-06-15] MEDS ORDERED: ACETAMINOPHEN 325 MG TABLET (FP) ONE (21:16)
[2021-06-15] MEDS ORDERED: dilTIAZem HCL 50 MG/10 ML - 10 ML VIAL ONE (22:11)
[2021-06-15] MEDS ORDERED: LOSARTAN POTASSIUM 50 MG TABLET ONE (23:17)
[2021-06-15] MEDS ORDERED: FUROSEMIDE 40 MG/4 ML INJECTABLE VIAL ONE (23:18)
[2021-06-15] MEDS ORDERED: FERROUS SO4 325 MG TABLET (FP) ONE (23:18)
[2021-06-15] MEDS ORDERED: methylPREDNISolone NA SUCC 40 MG/1 ML VIAL IVPUSH ONE (23:54)
[2021-06-16] MEDS: FERROUS SO4 325 MG TABLET (FP) PO SCH ×4 (00:15→21:31)
[2021-06-16] MEDS: LOSARTAN POTASSIUM 50 MG TABLET PO SCH ×2 (00:15→09:55)
[2021-06-16] MEDS ORDERED: methylPREDNISolone NA SUCC 125 MG/2 ML VIAL ONE (00:23)
[2021-06-16] MEDS: INSULIN SLIDING SCALE (NOVOLOG) 1 VIAL SQ SCH ×5 (02:49→21:18)
[2021-06-16 09:36] LABS: HEMATOCRIT 43.9 % (32.4-45.2); HEMOGLOBIN 14.5 GM/dL (10.7-15.3); MCH 29.6 pg (25.7-33.7); MEAN CELL VOLUME 89.5 fl (80-96); MEAN PLT VOLUME 8.8 fl (7.5-11.1); PLATELET COUNT 81 10^3/uL (134-434); RDW 16.9 % (11.6-15.6)
[2021-06-16 09:43] LABS: CALCIUM 8.8 mg/dL (8.5-10.1); MAGNESIUM 2.4 mg/dL (1.8-2.4)
[2021-06-16 09:44] LABS: WHITE BLOOD COUNT 33.9 K/mm3 (4.0-10.0)
[2021-06-16 09:46] LABS: BLOOD UREA NITROGEN 15.3 mg/dL (7-18)
[2021-06-16 09:47] LABS: PHOSPHOROUS 4.8 mg/dL (2.5-4.9)
[2021-06-16] MEDS ORDERED: amLODIPine BESYLATE 5 MG TABLET (FP) ONE (09:47)
[2021-06-16] MEDS ORDERED: ASCORBIC ACID 500 MG TABLET (FP) ONE (09:47)
[2021-06-16] MEDS ORDERED: LOSARTAN POTASSIUM 50 MG TABLET ONE (09:48)
[2021-06-16] MEDS ORDERED: metoPROLOL SUCCINATE 25 MG TAB.SR.24H (FP) ONE (09:48)
[2021-06-16] MEDS ORDERED: FERROUS SO4 325 MG TABLET (FP) ONE (09:48)
[2021-06-16] MEDS ORDERED: FUROSEMIDE 40 MG/4 ML INJECTABLE VIAL ONE (09:48)
[2021-06-16 09:49] LABS: CREATININE 0.6 mg/dL (0.55-1.3)
[2021-06-16] MEDS: FUROSEMIDE 40 MG/4 ML INJECTABLE VIAL IVPUSH SCH (09:55)
[2021-06-16] MEDS: CALCIUM 500MG/VIT-D 200 UNITS COMBO TABLET (FP) PO SCH (09:56)
[2021-06-16] MEDS: ASCORBIC ACID 500 MG TABLET (FP) PO SCH (09:56)
[2021-06-16] MEDS: amLODIPine BESYLATE 5 MG TABLET (FP) PO SCH (09:56)
[2021-06-16] MEDS: metoPROLOL SUCCINATE 25 MG TAB.SR.24H (FP) PO SCH ×2 (09:56→21:17)
[2021-06-16] MEDS ORDERED: LOSARTAN POTASSIUM 50 MG TABLET PO SCH (10:00)
[2021-06-16] MEDS ORDERED: FUROSEMIDE 20 MG TABLET (FP) PO SCH (10:00)
[2021-06-16 12:07] LABS: ANISOCYTOSIS 0; HELMET CELLS 0; HOWELL-JOLLY BODIES 0; MACROCYTOSIS 0; OVALOCYTE 0; PLATELET ESTIMATE DECREASED; ROULEAU 0; SICKELED CELLS 0; TARGET CELLS 0; TEAR DROP CELLS 0; TOXIC GRANULATION 0
[2021-06-16 16:47] VITALS: BMI 20.3
[2021-06-16 21:42] LABS: EPI CELLS 14 /uL (0-25.1); HYALINE CASTS 6 /uL (0-3.1); PH,URINE 5.5 (5.0-8.0); URINE APPEARANCE CLEAR; URINE BACTERIA 7 /uL (0-1359); URINE BILIRUBIN NEGATIVE (NEGATIVE); URINE COLOR YELLOW; URINE GLUCOSE (UA) NEGATIVE (NEGATIVE); URINE KETONE NEGATIVE (NEGATIVE); URINE LEUK ESTERASE NEGATIVE (NEGATIVE); URINE NITRITE NEGATIVE (NEGATIVE); URINE PROTEIN 2+ (NEGATIVE); URINE RBC 6 /uL (0-23.9); URINE UROBILINOGEN 0.2 mg/dL (0.2-1.0); URINE WBC 24 /uL (0-25.8)
[2021-06-17] MEDS ORDERED: ACETAMINOPHEN 325 MG TABLET (FP) PO ONE (06:02)
[2021-06-17] MEDS: INSULIN SLIDING SCALE (NOVOLOG) 1 VIAL SQ SCH ×4 (06:31→21:48)
[2021-06-17] MEDS: metoPROLOL SUCCINATE 25 MG TAB.SR.24H (FP) PO SCH ×2 (10:58→21:47)
[2021-06-17] MEDS: LOSARTAN POTASSIUM 50 MG TABLET PO SCH (10:58)
[2021-06-17] MEDS: FUROSEMIDE 40 MG/4 ML INJECTABLE VIAL IVPUSH SCH (10:58)
[2021-06-17] MEDS: amLODIPine BESYLATE 5 MG TABLET (FP) PO SCH ×2 (10:58→11:19)
[2021-06-17] MEDS: FERROUS SO4 325 MG TABLET (FP) PO SCH ×2 (10:59→21:46)
[2021-06-17] MEDS: GABAPENTIN 100 MG CAPSULE PO SCH ×2 (10:59→21:47)
[2021-06-17] MEDS: CALCIUM 500MG/VIT-D 200 UNITS COMBO TABLET (FP) PO SCH (10:59)
[2021-06-17] MEDS: ASCORBIC ACID 500 MG TABLET (FP) PO SCH (10:59)
[2021-06-17] MEDS: GLIMEPIRIDE 1 MG TABLET PO SCH (11:01)
[2021-06-18] MEDS ORDERED: PT OWN MED DRAWER 7, Y5N ONE (07:08)
[2021-06-18] MEDS: GLIMEPIRIDE 1 MG TABLET PO SCH (07:09)
[2021-06-18] MEDS: INSULIN SLIDING SCALE (NOVOLOG) 1 VIAL SQ SCH ×4 (07:09→21:20)
[2021-06-18] MEDS: amLODIPine BESYLATE 5 MG TABLET (FP) PO SCH (10:40)
[2021-06-18] MEDS: FUROSEMIDE 40 MG/4 ML INJECTABLE VIAL IVPUSH SCH (10:40)
[2021-06-18] MEDS: FERROUS SO4 325 MG TABLET (FP) PO SCH (10:40)
[2021-06-18] MEDS: GABAPENTIN 100 MG CAPSULE PO SCH ×2 (10:40→21:22)
[2021-06-18] MEDS: metoPROLOL SUCCINATE 25 MG TAB.SR.24H (FP) PO SCH ×2 (10:40→21:20)
[2021-06-18] MEDS: ASCORBIC ACID 500 MG TABLET (FP) PO SCH (10:40)
[2021-06-18] MEDS: CALCIUM 500MG/VIT-D 200 UNITS COMBO TABLET (FP) PO SCH (10:40)
[2021-06-18] MEDS: LOSARTAN POTASSIUM 50 MG TABLET PO SCH (10:40)
[2021-06-18] MEDS ORDERED: ACETAMINOPHEN 325 MG TABLET (FP) PO PRN ×2 (15:23→16:42)
[2021-06-18] MEDS ORDERED: MAG HYDROX/AL HYDROX/SIMETH 30 ML UNIT-DOSE CUP PO ONE (19:30)
[2021-06-19] MEDS ORDERED: PT OWN MED DRAWER 7, Y5N ONE (07:20)
[2021-06-19] MEDS: INSULIN SLIDING SCALE (NOVOLOG) 1 VIAL SQ SCH (07:20)
[2021-06-19] MEDS: GLIMEPIRIDE 1 MG TABLET PO SCH (07:21)
[2021-06-19 08:08] LABS: CALCIUM 8.1 mg/dL (8.5-10.1)
[2021-06-19 08:09] LABS: ALBUMIN 2.8 g/dl (3.4-5.0); BLOOD UREA NITROGEN 26.7 mg/dL (7-18)
[2021-06-19 08:12] LABS: CREATININE 0.5 mg/dL (0.55-1.3)
[2021-06-19 08:13] LABS: BILIRUBIN,TOTAL 0.7 mg/dL (0.2-1); TOT PROT 5.9 g/dl (6.4-8.2)
[2021-06-19 08:19] LABS: HEMATOCRIT 39.3 % (32.4-45.2); HEMOGLOBIN 12.7 GM/dL (10.7-15.3); MCH 29.1 pg (25.7-33.7); MCHC 32.3 g/dl (32.0-36.0); MEAN CELL VOLUME 90.1 fl (80-96); MEAN PLT VOLUME 9.7 fl (7.5-11.1); PLATELET COUNT 100 10^3/uL (134-434); RBC 4.37 M/mm3 (3.60-5.2); RDW 16.6 % (11.6-15.6)
[2021-06-19 08:52] LABS: WHITE BLOOD COUNT 33.3 K/mm3 (4.0-10.0)
[2021-06-19] MEDS: amLODIPine BESYLATE 5 MG TABLET (FP) PO SCH (09:53)
[2021-06-19] MEDS: CALCIUM 500MG/VIT-D 200 UNITS COMBO TABLET (FP) PO SCH (09:53)
[2021-06-19] MEDS: ASCORBIC ACID 500 MG TABLET (FP) PO SCH (09:53)
[2021-06-19] MEDS: LOSARTAN POTASSIUM 50 MG TABLET PO SCH (09:53)
[2021-06-19] MEDS: metoPROLOL SUCCINATE 25 MG TAB.SR.24H (FP) PO SCH (09:53)
[2021-06-19] MEDS: GABAPENTIN 100 MG CAPSULE PO SCH (09:53)
[2021-06-19] MEDS: FUROSEMIDE 40 MG/4 ML INJECTABLE VIAL IVPUSH SCH (09:55)
[2021-06-19 10:36] VITALS: BP 136/71; PULSE 97; TEMP 98
== END 2021-06-19 14:19 | disposition home health service (06) | DRG 308 ==
LOC: JER 15:56 → JERBED 19:41 → J4S 06-16 16:23
PROVIDERS: ADMIT Internal Medicine; ATTEND Internal Medicine
DX: I48.91 Unspecified atrial fibrillation (principal); I50.33 Acute on chronic diastolic (congestive) heart failure; D75.81 Myelofibrosis; R64 Cachexia; Z68.1 Body mass index [BMI] 19.9 or less, adult; J45.909 Unspecified asthma, uncomplicated; E11.9 Type 2 diabetes mellitus without complications; D69.6 Thrombocytopenia, unspecified; J47.9 Bronchiectasis, uncomplicated; F41.9 Anxiety disorder, unspecified; R21 Rash and other nonspecific skin eruption; R51.9 Headache, unspecified; I27.20 Pulmonary hypertension, unspecified; B02.9 Zoster without complications; D72.829 Elevated white blood cell count, unspecified; I11.0 Hypertensive heart disease with heart failure
CPT/HCPCS: 36415; 71045-TC-FY; 71275-TC; 76700-TC; 80048; 80053; 80061; 81003; 82550; 82962; 83735; 83880; 84100; 84443; 84484; 85025; 85027; 85610; 87040; 87086; 93005; 93010; 94761; 97116-GP; 97161-GP; 99285-25; C9803; Q9967; U0003; U0005

== ENCOUNTER 2021-06-23 14:48 | Inpatient (IN) | payer OTHER ==
[2021-06-23 15:11] VITALS: BMI 19.3
[2021-06-23] MEDS ORDERED: METOPROLOL TARTRATE 5 MG/5 ML VIAL IVPUSH ONE ×2 (15:20→17:31)
[2021-06-23] MEDS ORDERED: LACTATED RINGERS SOLUTION 1000 ML INFUS.BAG IV ONE (15:42)
[2021-06-23] MEDS ORDERED: ACETAMINOPHEN 1000 MG/100 ML VIAL IVPB ONE (16:12)
[2021-06-23 16:17] VITALS: TEMP 99.4
[2021-06-23 16:18] LABS: BASO % 0.5 % (0-2.0); EOS % 0.3 % (0-4.5); HEMATOCRIT 16.4 % (32.4-45.2); LYMPH % 13.2 % (8-40); MCH 27.9 pg (25.7-33.7); MCHC 30.4 g/dl (32.0-36.0); MEAN PLT VOLUME 9.1 fl (7.5-11.1); MONO % 5.7 % (3.8-10.2); NEUT % 80.3 % (42.8-82.8); PLATELET COUNT 77 10^3/uL (134-434); RBC 1.78 M/mm3 (3.60-5.2); RDW 17.1 % (11.6-15.6)
[2021-06-23] MEDS ORDERED: METOPROLOL TARTRATE 5 MG/5 ML VIAL ONE ×2 (16:26→17:41)
[2021-06-23] MEDS ORDERED: ACETAMINOPHEN INJECTION 100 ML IVPB ONE (16:26)
[2021-06-23 16:34] LABS: CALCIUM 8.1 mg/dL (8.5-10.1)
[2021-06-23 16:39] LABS: BILIRUBIN,TOTAL 0.8 mg/dL (0.2-1); TOT PROT 5.1 g/dl (6.4-8.2)
[2021-06-23 16:49] LABS: ALBUMIN 2.2 g/dl (3.4-5.0); BLOOD UREA NITROGEN 54.2 mg/dL (7-18)
[2021-06-23] MEDS ORDERED: METOPROLOL TARTRATE 25 MG TABLET (FP) ONE (17:09)
[2021-06-23] MEDS ORDERED: METOPROLOL TARTRATE 50 MG TABLET (FP) ONE (17:10)
[2021-06-23 18:14] LABS: N-TERMINAL BNP 6294.2 pg/ml (5-450)
[2021-06-23 18:36] VITALS: PULSE 89
[2021-06-23 18:42] VITALS: BP 88/55
[2021-06-23 18:44] LABS: ANISOCYTOSIS 3+; CORRECTED WBC 51.79 K/mm3; MACROCYTOSIS 0; PLATELET ESTIMATE DECREASED
[2021-06-23 20:41] LABS: INR 1.57 (0.83-1.09); PROTHROMBIN TIME (PATIENT) 17.7 SEC (9.7-13.0)
[2021-06-23 20:44] LABS: ACTIVATED PTT 26.5 SECONDS (25.2-36.5)
[2021-06-23] MEDS ORDERED: PANTOPRAZOLE SODIUM 40 MG VIAL IVPUSH ONE (20:52)
[2021-06-23] MEDS ORDERED: PANTOPRAZOLE SODIUM 40 MG VIAL ONE (20:58)
[2021-06-23] MEDS ORDERED: FUROSEMIDE 40 MG/4 ML INJECTABLE VIAL IVPUSH ONE (22:28)
[2021-06-23] MEDS ORDERED: FUROSEMIDE 40 MG/4 ML INJECTABLE VIAL ONE (22:57)
[2021-06-24] MEDS ORDERED: PROPOFOL 1,000,000 MCG/100 ML VIAL ONE (01:02)
[2021-06-24 02:13] LABS: HEMATOCRIT 28.7 % (32.4-45.2); HEMOGLOBIN 8.1 GM/dL (10.7-15.3); MCHC 28.3 g/dl (32.0-36.0); MEAN CELL VOLUME 98.8 fl (80-96); MEAN PLT VOLUME 9.4 fl (7.5-11.1); PLATELET COUNT 101 10^3/uL (134-434); RBC 2.91 M/mm3 (3.60-5.2); RDW 19.4 % (11.6-15.6)
[2021-06-24 02:16] LABS: WHITE BLOOD COUNT 119.5 K/mm3 (4.0-10.0)
[2021-06-24 02:34] LABS: ARTERIAL BLD GAS O2 SATURATION 95.9 % (95-98); ARTERIAL BLOOD GAS BASE EXCESS -30.5 mmol/L (-2-2); ARTERIAL BLOOD GAS PO2 151.8 mmHg (80-100)
[2021-06-24 02:40] LABS: ARTERIAL BLOOD GAS pH 6.742 (7.350-7.450)
[2021-06-24 03:59] LABS: ANISOCYTOSIS 2+; MACROCYTOSIS 0; OVALOCYTE 1+; PLATELET ESTIMATE DECREASED; TEAR DROP CELLS 1+
== END 2021-06-24 03:18 | disposition short-term general hospital (02) | DRG 377 ==
LOC: JER 14:48 → JERBED 18:45
PROVIDERS: ADMIT Hospitalist; ATTEND Internal Medicine
PROC: 0DH67UZ Insertion of Feeding Device into Stomach, Via Natural or Artificial Opening (ICD-10-PCS; principal; 2021-06-23)
PROC: 0BH17EZ Insertion of Endotracheal Airway into Trachea, Via Natural or Artificial Opening (ICD-10-PCS; 2021-06-23)
PROC: 5A1935Z Respiratory Ventilation, Less than 24 Consecutive Hours (ICD-10-PCS; 2021-06-23)
PROC: 30233N1 Transfusion of Nonautologous Red Blood Cells into Peripheral Vein, Percutaneous Approach (ICD-10-PCS; 2021-06-23)
DX: K92.2 Gastrointestinal hemorrhage, unspecified (principal); I21.3 ST elevation (STEMI) myocardial infarction of unspecified site; I46.9 Cardiac arrest, cause unspecified; I50.32 Chronic diastolic (congestive) heart failure; D47.1 Chronic myeloproliferative disease; D64.9 Anemia, unspecified; D69.6 Thrombocytopenia, unspecified; D72.829 Elevated white blood cell count, unspecified; I95.9 Hypotension, unspecified; I27.20 Pulmonary hypertension, unspecified; R00.1 Bradycardia, unspecified
CPT/HCPCS: 36415; 36430; 36600; 71045-TC-FY; 80053; 82272; 82550; 82803; 83880; 84443; 84484; 85025; 85610; 85730; 86850; 86900; 86901; 86922; 93005; 93010; 94002; 99285-25; C9803; J0131; P9058; U0003; U0005